=== PATIENT | male | born 1950 | race Caucasian/White ===

== ENCOUNTER 2017-06-17 19:07 | Emergency (ER) | payer MEDICARE, BC ==
[2017-06-17 19:23] VITALS: BP 140/75
[2017-06-17] MEDS ORDERED: BUFFERED LIDOCAINE 10 ML SYRINGE ONE (19:58)
--- NOTE | 2017-06-17 20:07 | ED Physician Documentation ---
PD HPI HEAD INJURY - Stated complaint Stated Complaint: GLF - CHIN LAC - Chief complaint Chief Complaint: Laceration - History obtained from History obtained from: Patient - History of Present Illness Mechanism of head injury: Fell (Slip and mechanical fall in the shower hitting his chin on the shower seat and has a laceration there. Tetanus is up-to-date. No other injuries and no loss of consciousness or headache.) Review of Systems Constitutional: denies: Fever, Chills Eyes: denies: Loss of vision, Decreased vision Ears: denies: Drainage/discharge Nose: denies: Rhinorrhea / runny nose, Congestion, Epistaxis PD PAST MEDICAL HISTORY - Past Medical History Past Medical History: No - Past Surgical History Past Surgical History: Yes HEENT: Tonsil/Adenoidectomy - Present Medications Home Medications: Ambulatory Orders Medication Instructions Recorded Confirmed No Known Home Medications [No 06/17/17 06/17/17 Known Home Medications] - Allergies Allergies/Adverse Reactions: Allergies Allergy/AdvReac Type Severity Reaction Status Date / Time No Known Drug Allergies Allergy Verified 06/17/17 19:21 - Social History Does the pt smoke?: No Smoking Status: Never smoker Does the pt drink ETOH?: No Does the pt have substance abuse?: No - Immunizations Immunizations are current?: Yes - POLST Patient has POLST: No PD ED PE NORMAL - Vitals Vital signs reviewed: Yes - General General: Alert and oriented X 3, No acute distress - HEENT HEENT: PERRL, EOMI, Other (There is a 2 cm submental laceration in a heavy bowers. 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, Normal speech - Psych Psych: Normal mood, Normal affect Results - Vitals Vitals: Vital Signs - 24 hr 06/17/17 19:19 Temperature 36.1 C L Heart Rate 64 Respiratory 15 Rate Blood Pressure 140/75 H O2 Saturation 95 Oxygen O2 Source Room air Procedures - Laceration (location) chin Length in cm: 2 Wound type: Linear Anesthesia: Lidocaine 1%, With bicarb Wound Preparation: Irrigated copiously NS Skin layer closure: Other (He has a deep bowers, it was closed with running 5-0 Vicryl because I did not think it would be possible to easily remove the stitches in an outpatient setting.) Other: Tetanus UTD Complexity: Simple Departure - Departure Disposition: 01 Home, Self Care Clinical Impression: Laceration Condition: Good Record reviewed to determine appropriate education?: Yes Instructions: ED Laceration All Comments: Follow-up with Dr. Kaiser in 7-10 days if the sutures have not started to fall out on their own. Your blood pressure was elevated today on check into the emergency department. This does not mean that you have hypertension, it is a common phenomenon to come to the emergency department and have elevated blood pressure. I recommend that she see your primary care physician within the week to have it rechecked when you are feeling better. Discharge Date/Time: 06/17/17 20:11
== END 2017-06-17 20:11 | disposition home or self-care (01) ==
LOC: ED 19:07
DX: S01.81XA Laceration without foreign body of other part of head, initial encounter (principal); W18.2XXA Fall in (into) shower or empty bathtub, initial encounter; Y93.E1 Activity, personal bathing and showering; R03.0 Elevated blood-pressure reading, without diagnosis of hypertension
CPT/HCPCS: 12011; 99282; 99283